=== PATIENT | male | born 1950 | race Caucasian/White ===

== ENCOUNTER 2023-12-02 01:21 | Day surgery (SDC) | payer BC, SELFPAY ==
[2023-11-17 08:54] VITALS: BMI 32.7
[2023-12-02 06:31] VITALS: BP 145/82; PULSE 81; RESP 18; TEMP 36.2; O2SAT 97
[2023-12-02] MEDS: LACTATED RINGERS 1,000 ML 150 ML IV CONT (06:43)
--- NOTE | 2023-12-02 07:46 | WPDANESEPPF ---
Anes - Initial Pre Proc Eval Procedure: Operation Date: 12/02/23 08:00 Proposed Procedures p Colonoscopy - Robles Sam MD Date/Time: 12/02/23 07:46 Surgeon: Robles Sam MD Pre Op Diagnosis: History colon polyps Patient Data Age: 73 Gender: M Height: 1.68 m Weight: 86.1 kg Last Vital Signs Temp 97.1 F L 12/02/23 06:31 Pulse 81 12/02/23 06:31 Resp 18 12/02/23 06:31 BP 145/82 H 12/02/23 06:31 Pulse Ox 97 12/02/23 06:31 O2 Del Method Room Air 12/02/23 06:31 Allergies Allergy/AdvReac Type Severity Reaction Status Date / Time Penicillins Allergy Mild hives Verified 12/02/23 06:30 Home Medications Medication Instructions Recorded Confirmed Type albuterol sulfate 90 mcg/actuation 1 puff inhalation Q4H PRN 03/30/21 11/17/23 Rx aerosol inhaler shortness of breath or wheezing #8.5 grams montelukast 10 mg tablet 10 mg PO DAILY #30 tabs 03/30/21 11/17/23 Rx tadalafil 20 mg tablet (Cialis) 20 mg PO DAILY PRN sexual activity 09/27/22 11/17/23 Rx #10 tabs valsartan 320 mg tablet See Rx Instructions .Route 10/17/23 11/17/23 Rx .COMPLEX #90 tabs fluticasone 250 mcg-salmeterol 50 1 inh inhalation DAILY 11/17/23 11/17/23 History mcg/dose blistr powdr for inhalation (Advair Diskus) nystatin-triamcinolone 100,000 1 applic topical BID PRN Rash 11/17/23 11/17/23 History unit/gram-0.1 % topical ointment amlodipine 5 mg tablet See Rx Instructions .Route 11/18/23 12/02/23 Rx .COMPLEX #90 tabs Patient hx anesthesia problems: none Family hx anesthesia problems: none Results Review: All pre-operative results and documents have been reviewed as part of the pre-operative evaluation. [facility] Past Medical History Medical History Erectile dysfunction Family History Family History Father Asthma Sibling Asthma Family history of diabetes mellitus in first degree relative Social History Social History (Updated 09/05/23 @ 13:41 by Estefani Pantoja) Social History: Smoking status: Never smoker Second hand tobacco smoke exposure: No Alcohol intake: never Substance use: never Substance use type: does not use Do You Feel Safe in your Home?: Yes Lack of Transportation: No Lack of Food: Never True Current Housing: I Have Housing Concerned About Future Housing: No Difficulty Paying Gas/Electric Bills: No Difficulty Paying for Meds: No Currently Unemployed: YES Education: Don't Know Difficulty w/ Childcare or Family Care: No Living arrangements: with family Occupation/Education: retired Gender identity (if verbalized by the patient): Male Sexual Orientation (if Verbalized by the Patient): Straight or Heterosexual Spiritual care concerns: No Anes - Eval Final PreProcedure Day of Procedure 12/02/23 07:46 Patient weight: obese Heart: regular rate and rhythm Lungs: clear to auscultation Airway: Mallampati scale class II Neurological: alert and oriented Last oral intake: >/= 8 hours ASA classification: II Emergent: no Anesthetic plan: proceed Anesthesia type and monitoring: general GIVS and standard monitoring Results Review: All pre-operative results and documents have been reviewed as part of the pre-operative evaluation. Informed Consent: The patient's anesthetic plan and its attendant risks and benefits were discussed with the patient/family/POA. Questions were solicited and answers provided to the satisfaction of the patient/family/POA.
--- NOTE | 2023-12-02 08:11 | PM.HPGS ---
History of Present Illness History of Present Illness Consent: Risks, benefits, and alternatives have been discussed and questions answered. Patient agrees to proceed with procedure. Chief complaint: History colon polyps Narrative: Sky Davies is a 73 year old male with history of colon polyp Review of Systems Review of Systems: All systems reviewed & are unremarkable except as noted in HPI and below PMFSH Past Medical History Medical History (Updated 12/02/23 @ 08:12 by Robles Sam MD) Colon polyp Erectile dysfunction Family History Family History Father Asthma Sibling Asthma Family history of diabetes mellitus in first degree relative Social History Social History (Updated 09/05/23 @ 13:41 by Estefani Pantoja) Social History: Smoking status: Never smoker Second hand tobacco smoke exposure: No Alcohol intake: never Substance use: never Substance use type: does not use Do You Feel Safe in your Home?: Yes Lack of Transportation: No Lack of Food: Never True Current Housing: I Have Housing Concerned About Future Housing: No Difficulty Paying Gas/Electric Bills: No Difficulty Paying for Meds: No Currently Unemployed: YES Education: Don't Know Difficulty w/ Childcare or Family Care: No Living arrangements: with family Occupation/Education: retired Gender identity (if verbalized by the patient): Male Sexual Orientation (if Verbalized by the Patient): Straight or Heterosexual Spiritual care concerns: No Meds Home Medications and Allergies Home Medications Medication Instructions Recorded Confirmed Type albuterol sulfate 90 mcg/actuation 1 puff inhalation Q4H PRN 03/30/21 11/17/23 Rx aerosol inhaler shortness of breath or wheezing #8.5 grams montelukast 10 mg tablet 10 mg PO DAILY #30 tabs 03/30/21 11/17/23 Rx tadalafil 20 mg tablet (Cialis) 20 mg PO DAILY PRN sexual activity 09/27/22 11/17/23 Rx #10 tabs valsartan 320 mg tablet See Rx Instructions .Route 10/17/23 11/17/23 Rx .COMPLEX #90 tabs fluticasone 250 mcg-salmeterol 50 1 inh inhalation DAILY 11/17/23 11/17/23 History mcg/dose blistr powdr for inhalation (Advair Diskus) nystatin-triamcinolone 100,000 1 applic topical BID PRN Rash 11/17/23 11/17/23 History unit/gram-0.1 % topical ointment amlodipine 5 mg tablet See Rx Instructions .Route 11/18/23 12/02/23 Rx .COMPLEX #90 tabs Allergies Allergy/AdvReac Type Severity Reaction Status Date / Time Penicillins Allergy Mild hives Verified 12/02/23 06:30 Vital Signs Vital Signs - 24 hr 12/02/23 06:31 Temperature 97.1 F L Pulse Rate 81 Respiratory Rate 18 Blood Pressure 145/82 H Pulse Oximetry 97 Oxygen Delivery Room Air Exam Const: General: comfortable and no acute distress HENMT: Face/Nose/Sinus: Normal nares present Eyes: General: appearance normal, both eyes and all related structures Neck: Neck: no JVD Resp: Auscultation: clear to auscultation bilaterally Cardio: Rate: regular rate Rhythm: regular rhythm GI: Inspection: non-distended GI Palp: Yes Soft to palpation Skin: General skin exam: normal color Neuro: General: gait normal Speech: normal speech Extrem: General: normal to inspection Psych: Mental Status: mental status grossly normal Assessment and Plan Assessment and plan (1) Colon polyp: Code(s): K63.5 - Polyp of colon Status: Acute Assessment and Plan: colonoscopy
[2023-12-02 08:28] VITALS: BP 116/70; PULSE 71; RESP 16; O2SAT 98
[2023-12-02 08:38] VITALS: BP 121/76; PULSE 72; RESP 20; O2SAT 99
[2023-12-02 08:48] VITALS: BP 130/83; PULSE 66; RESP 20; O2SAT 99
== END 2023-12-02 08:53 | disposition home or self-care (01) ==
PROVIDERS: PCP Family Medicine; Visit Provider Internal Medicine Gastroenterology
PROC: 0DJD8ZZ Inspection of Lower Intestinal Tract, Via Natural or Artificial Opening Endoscopic (ICD-10-PCS; CPT 45378; principal; 2023-12-02 08:00)
DX: Z12.11 Encounter for screening for malignant neoplasm of colon (principal); K64.8 Other hemorrhoids; Z79.51 Long term (current) use of inhaled steroids; E66.9 Obesity, unspecified; Z68.30 Body mass index [BMI] 30.0-30.9, adult
CPT/HCPCS: 45378; J2704; J7120